=== PATIENT | female | born 1975 | race Caucasian/White ===

== ENCOUNTER 2018-12-07 08:37 | Outpatient (CLI) | payer OTHER | END 2018-12-07 21:02 | disposition home or self-care (01) | LOC: SMI 08:37 | PROVIDERS: ATTEND Neuromusculoskeletal Medicine, Sports Medicine | DX: S83.241A Other tear of medial meniscus, current injury, right knee, initial encounter (principal); S83.411A Sprain of medial collateral ligament of right knee, initial encounter; M22.41 Chondromalacia patellae, right knee; X58.XXXA Exposure to other specified factors, initial encounter; Y93.89 Activity, other specified; Y92.89 Other specified places as the place of occurrence of the external cause; Y99.8 Other external cause status | CPT/HCPCS: 73721 ==

== ENCOUNTER 2019-07-26 08:34 | Outpatient (CLI) | payer OTHER | END 2019-07-28 15:15 | disposition home or self-care (01) | LOC: SMI 08:34 | DX: S83.242A Other tear of medial meniscus, current injury, left knee, initial encounter (principal); M94.262 Chondromalacia, left knee; M25.462 Effusion, left knee; R60.9 Edema, unspecified; X58.XXXA Exposure to other specified factors, initial encounter; Y93.89 Activity, other specified; Y92.89 Other specified places as the place of occurrence of the external cause; Y99.8 Other external cause status | CPT/HCPCS: 73721 ==